=== PATIENT | male | born 1955 | race Native Hawaiian/Other Pacific Islander ===

== ENCOUNTER 2016-12-06 12:36 | Outpatient (CLI) | payer OTHER ==
[2016-12-06 13:10] LABS: PLATELET COUNT 190 K/uL (142-355)
[2016-12-06 13:47] LABS: POTASSIUM 4.3 mmol/L (3.6-5.2); SODIUM 133 mmol/L (136-145)
== END 2016-12-06 19:05 | disposition home or self-care (01) ==
LOC: LABW 12:36
PROVIDERS: Family Medicine
DX: J44.9 Chronic obstructive pulmonary disease, unspecified (principal); R05 Cough; J40 Bronchitis, not specified as acute or chronic; K70.30 Alcoholic cirrhosis of liver without ascites; K63.5 Polyp of colon; E55.9 Vitamin D deficiency, unspecified; R94.6 Abnormal results of thyroid function studies
CPT/HCPCS: 36415; 80053; 81000; 82043; 82150; 82306; 82570; 83690; 83735; 84439; 84443; 85027

== ENCOUNTER 2020-07-01 12:57 | Outpatient (CLI) | payer OTHER ==
[2020-07-01 13:45] LABS: PLATELET COUNT 140 K/uL (142-355)
== END 2020-07-01 23:47 | disposition home or self-care (01) ==
LOC: LABW 12:57
PROVIDERS: ATTEND Family Medicine
DX: Z01.818 Encounter for other preprocedural examination (principal); K76.9 Liver disease, unspecified; J44.9 Chronic obstructive pulmonary disease, unspecified; F17.200 Nicotine dependence, unspecified, uncomplicated; R03.0 Elevated blood-pressure reading, without diagnosis of hypertension
CPT/HCPCS: 36415; 80053; 80061; 81000; 84439; 84443; 85027; 93005